=== PATIENT | male | born 1985 | race Caucasian/White ===

== ENCOUNTER 2022-12-27 12:51 | Emergency (ER) | payer OTHER, SELFPAY ==
--- NOTE | ~2022-12-27 | XR_ITS ---
EXAMINATION: XR shoulder LT min 2V DATE: 12/27/2022 14:13 INDICATION: Left shoulder injury and pain. TECHNIQUE: 3 views of left shoulder were obtained. COMPARISON: None. FINDINGS: There is a comminuted fracture of proximal left humerus involving the greater and lesser tu berosities and surgical neck. At the surgical neck, the distal fracture fragment demonstrates 3 mm me dial displacement and impaction. At the greater tuberosity, there is 4 mm displacement. Joint spaces are normal. IMPRESSION: 1. Comminuted, one-part fracture of proximal left humerus. Reviewed, dictated and finalized at location A.
--- NOTE | ~2022-12-27 | XR_ITS ---
EXAMINATION: XR elbow LT min 3V DATE: 12/27/2022 14:13 INDICATION: Left elbow injury and pain. TECHNIQUE: 4 views of left elbow were obtained. COMPARISON: None. FINDINGS: Bone alignment is normal. No fracture. Joint spaces are well maintained. IMPRESSION: 1. No fracture. Reviewed, dictated and finalized at location A. IMPRESSION: 1. No fracture.
[2022-12-27 12:55] VITALS: BP 106/67; PULSE 56; RESP 16; TEMP 36.1; O2SAT 99
[2022-12-27] MEDS: HYDROcodone/acetaminophen (*CRX) 5-325 MG TABLET 1 TAB PO (15:34)
--- NOTE | 2022-12-27 15:48 | ED.GENADULT ---
HPI - General Adult General Chief complaint: Extremity Injury, Upper Stated complaint: Arm injury Time Seen by Provider: 12/27/22 15:18 Source: RN notes reviewed History of Present Illness HPI narrative: Patient presents emergency department from home for left shoulder pain. Patient states that prior to arrival he was playing pickle ball when he tripped and fell landing on his left shoulder that was against his body states that since that time he said pain in his left shoulder is worse with any movement he also notes some mild elbow pain he denies any pain in his wrist he denies striking his head or loss of consciousness and denies any neck pain chest pain or any other injuries. States he has not taken anything for the pain he denies any numbness or tingling of the extremity Related Data Allergies Allergy/AdvReac Type Severity Reaction Status Date / Time NSAIDS (Non-Steroidal AdvReac Gastrointestinal Verified 12/27/22 15:34 Anti-Inflamma Upset Review of Systems Review of Systems: Gen.: Denies fevers or chills Eyes: Denies eye pain or visual change ENT: Denies facial injury Respiratory: Denies shortness of breath CV: Denies chest pain GI: Denies abdominal pain nausea, emesis Musculoskeletal: See HPI Neuro: Denies head injury or loss of consciousness denies any numbness or tingling Skin: Denies rash Except as documented, all other systems reviewed and negative [facility] Past Medical History Medical History (Updated 12/27/22 @ 15:52 by Eldon Garcia DO) Patient denies significant medical history Social History Social History (Updated 12/27/22 @ 15:50 by Eldon Garcia DO) Smoking status: Never smoker Exam Narrative: APPEARANCE: No acute distress, nontoxic, resting in bed EYES: EOMI HEENT: Normocephalic, atraumatic, OMM Neck, supple no midline tenderness palpation full range of motion without pain RESPIRATORY: No respiratory distress Clear to auscultation bilaterally with no rhonchi wheezing or rales. CARDIOVASCULAR: Regular rate and rhythm without murmurs rubs or gallops. ABDOMINAL: Soft, nontender, nondistended, no rebound or guarding MUSCULOSKELETAl: No clubbing, cyanosis or edema. No tenderness of the right upper extremity bilateral lower extremities, the left shoulder is diffusely tender to palpation with pain with any movement of left shoulder there is mild tenderness to the left posterior elbow the remainder of the elbow nontender with no swelling there is no tenderness of the left wrist radial pulses 2+ neurovascular intact intact pinprick sensation throughout the entire left shoulder NEURO: Awake and alert. Following commands, speech normal, no focal deficits SKIN:: Warm, dry. No rashes lesions or abrasions PSYCHIATRIC: Normal affect/mood, Course Course Emergency Course: Called and discussed with Dr. Smith for orthopedics presentation work-up recommends patient be placed in sling with follow-up in the office Vital Signs Vital signs: Vital Signs Temperature 97.0 F L 12/27/22 12:55 Pulse Rate 56 L 12/27/22 12:55 Respiratory Rate 16 12/27/22 12:55 Blood Pressure 106/67 12/27/22 12:55 Pulse Oximetry 99 12/27/22 12:55 Oxygen Delivery Room Air 12/27/22 12:55 Temperature 97.0 F L 12/27/22 12:55 Pulse Rate 56 L 12/27/22 12:55 Respiratory Rate 16 12/27/22 12:55 Blood Pressure 106/67 12/27/22 12:55 Pulse Oximetry 99 12/27/22 12:55 Oxygen Delivery Room Air 12/27/22 12:55 Medical Decision Making MDM Narrative Medical decision making narrative: Patient presents for fall playing pickle ball left shoulder pain and left shoulder shows acute fracture discussed with orthopedics patient is neurovascular intact no other injuries noted recommend sling with outpatient evaluation Vital Signs Vital Signs: Vital Signs Temperature 97.0 F L 12/27/22 12:55 Pulse Rate 56 L 12/27/22 12:55 Respiratory Rate 16 12/27/22 12:55 Blood Pressure 106/67 12/27/22 12:5
== END 2022-12-27 16:43 | disposition home or self-care (01) ==
LOC: ANHED 16:12
PROVIDERS: Emergency Provider Emergency Medicine; PCP Family Medicine
DX: S42.202A Unspecified fracture of upper end of left humerus, initial encounter for closed fracture (principal); W01.0XXA Fall on same level from slipping, tripping and stumbling without subsequent striking against object, initial encounter
CPT/HCPCS: 73030; 73080; 99284; A4565; A9270

== ENCOUNTER 2023-04-04 13:38 | Outpatient (CLI) | payer OTHER, SELFPAY ==
--- NOTE | ~2023-04-04 | XR_ITS ---
XR shoulder LT min 2V DATE: 04/04/2023 13:52 INDICATION: Follow-up left shoulder fracture TECHNIQUE: 3 views COMPARISON: 02/08/2023 left shoulder FINDINGS: There is no significant change in position or alignment at the virtually nondisplaced commi nuted fracture of the humeral head and greater tuberosity of the proximal left humerus. Normal acromioclavicular and glenohumeral alignment. IMPRESSION: Comminuted fracture of left humeral head and greater tuberosity Reviewed, dictated and finalized at location B.
== END 2023-04-04 13:39 | disposition home or self-care (01) ==
LOC: ANHBWCIMG 13:40
PROVIDERS: PCP Family Medicine; Visit Provider Orthopaedic Surgery
DX: S42.255A Nondisplaced fracture of greater tuberosity of left humerus, initial encounter for closed fracture (principal); T14.90XA Injury, unspecified, initial encounter
CPT/HCPCS: 73030

== ENCOUNTER 2023-05-02 12:27 | Outpatient (CLI) | payer OTHER, SELFPAY ==
--- NOTE | ~2023-05-02 | XR_ITS ---
EXAMINATION: XR shoulder LT min 2V INDICATION: Left shoulder pain TECHNIQUE: Four views of the left shoulder are submitted. COMPARISON: 04/04/2023 FINDINGS: There is a healing comminuted fracture of the proximal left humerus. Alignment is near-mike omic. Glenohumeral and acromioclavicular joint spaces are normal. Soft tissues are unremarkable. IMPRESSION: 1. Healing comminuted fracture of the proximal humerus in essentially anatomic alignment. Reviewed, dictated and finalized at location B.
--- NOTE | ~2023-05-02 | XR_ITS ---
EXAMINATION: XR elbow LT min 3V DATE: 05/02/2023 12:48 INDICATION: Left elbow pain TECHNIQUE: Anteroposterior, two oblique and lateral views of the left elbow were obtained. COMPARISON: None. FINDINGS: Alignment is normal. No fracture. Spaces are normal. Soft tissues are unremarkable. No left elbow adilene nt effusion. IMPRESSION: 1. Reviewed, dictated and finalized at location A. IMPRESSION: 1.
== END 2023-05-02 12:28 | disposition home or self-care (01) ==
PROVIDERS: PCP Family Medicine; Visit Provider Orthopaedic Surgery
DX: M25.512 Pain in left shoulder (principal)
CPT/HCPCS: 73030; 73080

== ENCOUNTER 2023-10-17 12:46 | Outpatient (CLI) | payer OTHER, SELFPAY ==
--- NOTE | ~2023-10-17 | XR_ITS ---
Left Shoulder Technique: AP and scapular Y views were obtained. Clinical History: Pain Findings: No acute fracture or dislocation is seen. Probable healed fracture deformity the proximal h umerus noted. Osseous alignment is anatomic. The glenohumeral and acromioclavicular joint spaces are preserved. Soft tissues are unremarkable. Impression: No acute abnormality. Probable healed chronic fracture deformity the proximal humerus. Reviewed, dictated and finalized at location . [facility] CERAMIST Impression: No acute abnormality. Probable healed chronic fracture deformity the proximal humerus.
== END 2023-10-17 12:47 | disposition home or self-care (01) ==
LOC: ANHBWCIMG 12:49
PROVIDERS: PCP Family Medicine; Visit Provider Orthopaedic Surgery
DX: M75.02 Adhesive capsulitis of left shoulder (principal)
CPT/HCPCS: 73030